=== PATIENT | female | born 1955 | race Caucasian/White ===

== ENCOUNTER → 2016-11-12 | Outpatient (CLI) | payer OTHER ==
--- NOTE | ~2016-11-12 | MY30 ---
[facility]. [facility] A Service of [facility] RADIOLOGY TEXT RESULTS PATIENT: MAYLIN MUNIZ LOCATION: [facility] : 51 UNIT #: [id number] AGE: [address]: Joshua Arboleda MD SEX: F ORDER DR: [id number] [address] [address] [id number] O MR#: [id number] Acc #: [id number] NAME: MAYLIN MUNIZ : 1955 SEX: F STUDY DATE/TIME: 11/12/2016 9:50 UNIT: [facility] ROOM: STUDY DESCRIPTION: MY SCREEN GERMAN BILAT DIGITAL Attending Physician: Joshua Arboleda M.D. Referring Physician: Joshua Arboleda M.D. Ordering Physician: Chago Hoffman M.D. Primary Care Physician: Chago Hoffman M.D. MEDICAL IMAGING REPORT This report is preliminary unless electronic signature is present. EXAMINATION Bilateral digital screening mammogram with CAD. DATE 11/12/2016 HISTORY 61-year-old female with family history of breast cancer in maternal aunt at age is 65. History of benign left breast cyst excision in 1985. No personal history of breast cancer or current complaints. COMPARISON Bilateral screening mammogram 11/03/2015, 09/16/2014, 08/23/2013. FINDINGS CC and ML views were obtained of each breast utilizing digital technique and reviewed with an FDA-approved CAD device. Linear marker was placed over the left breast denoting a surgical scar. Scattered fibroglandular densities are present. No new or suspicious nodule, architectural distortion, or clustered microcalcification is seen. IMPRESSION 1. BIRADS 1. Negative screening mammogram. Routine screening mammogram is recommended in one year. Patients over the age of 40 are entered into a reminder system with target due date for the next mammogram. A result letter will also be sent to the patient. BIRADS: 1 Negative. [facility] A Service of [facility] RADIOLOGY TEXT RESULTS PATIENT: MAYLIN MUNIZ LOCATION: [facility] : 51 UNIT #: [id number] AGE: [address]: Joshua Arboleda MD SEX: F ORDER DR: Dictated by... Rimma Trivedi M.D. THIS IS AN ELECTRONICALLY VERIFIED REPORT Rimma Trivedi M.D. at 11/15/2016 8:33 AM ALEXANDRA/alla TD: 11/12/2016 17:18 JOB #: [id number] MEDICAL IMAGING REPORT Page 1 of 1
== END | disposition home or self-care (01) ==
LOC: SMAM 08:40 → CWCC 09:30
DX: Z12.31 Encounter for screening mammogram for malignant neoplasm of breast (principal); Z80.3 Family history of malignant neoplasm of breast; Z98.890 Other specified postprocedural states; Z91.89 Other specified personal risk factors, not elsewhere classified
CPT/HCPCS: G0202